=== PATIENT | male | born 2000 | race African-American/Black ===

== ENCOUNTER 2024-05-14 23:36 | Emergency (ER) | payer MEDICAID, OTHER ==
[~2024-05-14] VITALS: Ht 175.3 cm; Wt 79.0 kg
[2024-05-14 23:39] VITALS: TEMP 98.1; O2SAT 99
[2024-05-14] MEDS ORDERED: ASPIRIN 325MG EC TABLET PO ONE (23:45)
[2024-05-15 00:11] LABS: BASOPHILS % 0.7 % (0.0-2.0); HEMATOCRIT. 46.1 % (42.0-52.0); HEMOGLOBIN. 15.7 g/dL (14.0-18.0); LYMPHOCYTES % 69.3 % (20.0-50.0); MEAN CORPUSCULAR HEMOGLOBIN 32.7 pg (28.0-32.0); MEAN CORPUSCULAR HGB CONC 34.2 g/dL (31.0-37.0); MEAN CORPUSCULAR VOLUME 95.8 fL (80.0-94.0); MONOCYTES % 7.4 % (2.0-8.0); NEUTROPHILS % 20.6 % (40.0-76.0); RED BLOOD CELL COUNT 4.81 mill/uL (4.7-6.1); RED CELL DISTRIBUTION WIDTH 13.1 % (11.6-14.6); WHITE BLOOD COUNT 6.6 x1000/uL (4.5-11.0)
[2024-05-15 00:13] LABS: CHLORIDE 107 mEq/L (98-107); POTASSIUM 3.7 mEq/L (3.5-5.1); SODIUM 141 mEq/L (136-145)
[2024-05-15 00:14] LABS: CALCIUM 9.4 mg/dL (8.7-10.4); CARBON DIOXIDE 25 mEq/L (21-32)
[2024-05-15 00:19] LABS: ETHANOL BLOOD 14 mg/dL (<10); GLUCOSE 85 mg/dL (70-105); UREA NITROGEN BLOOD 10 mg/dL (9-23)
[2024-05-15 00:20] LABS: TROPONIN I HIGH SENSITIVITY 11 ng/L (3.0-53)
[2024-05-15] MEDS: ACETAMINOPHEN 1000MG/100ML 100 ML IV ONE (00:24)
[2024-05-15 00:30] LABS: DIFFERENTIAL COMMENT 1
[2024-05-15 01:40] LABS: PARTIAL THROMBOPLASTIN TIME 25.6 sec (23.4-31.0)
[2024-05-15 02:29] LABS: ERYTHROCYTE SEDIMENTATION RATE 2 mm/hr (0-15)
[2024-05-15 02:52] LABS: MEAN PLATELET VOLUME 12.4 fl (7.4-10.4); PLATELET 130 x1000/uL (130-400)
[2024-05-15 05:34] LABS: TROPONIN I HIGH SENSITIVITY 16 ng/L (3.0-53)
[2024-05-15 06:05] VITALS: BP 100/53; PULSE 61; RESP 13; O2SAT 98
[2024-05-15 06:28] LABS: *AMPHETAMINES SCREEN URINE NEGATIVE (NEGATIVE); *BARBITURATES SCREEN URINE NEGATIVE (NEGATIVE); *BENZODIAZEPINES SCREEN URINE NEGATIVE (NEGATIVE); *COCAINE SCREEN URINE NEGATIVE (NEGATIVE); METHADONE URINE SCREEN NEGATIVE (NEGATIVE); OPIATES URINE SCREEN NEGATIVE (NEGATIVE)
[2024-05-15 06:29] LABS: CANNABINOID URINE SCREEN NEGATIVE (NEGATIVE); ECSTASY MDMA SCREEN URINE NEGATIVE (NEGATIVE); PHENCYCLIDINE URINE SCREEN NEGATIVE (NEGATIVE)
== END 2024-05-15 06:07 | disposition home or self-care (01) ==
LOC: EDBD 23:36 → ER 23:58
DX: I31.9 Disease of pericardium, unspecified (principal); J45.909 Unspecified asthma, uncomplicated; Z98.890 Other specified postprocedural states
CPT/HCPCS: 80048; 80320; 83880; 85025; 85379; 85610; 85651; 85730; 84484 ×2; 36415 ×2; 71045; 93005; 99285; 80305; 96365; Z7610; G0480